=== PATIENT | female | born 1955 | race Two or more races ===

== ENCOUNTER 2020-12-15 21:04 | Emergency (ER) | payer MEDICARE, OTHER ==
[~2020-12-15] VITALS: Ht 152.4 cm; Wt 59.0 kg
--- NOTE | 2020-12-15 21:36 | NUR ---
PT BIBS C/O HIGH BP IN 190S. PT AAOX4 BREATHING EVENLY AND UNLABORED. PT ATTACHED TO MONITOR. MD AT BEDSIDE. PT DENIES DIZZINESS OR HEADACHE. GIVEN BLANKET AND CALL LIGHT WITHIN REACH
[2020-12-15 22:12] LABS: BASOPHILS % (AUTO) 0.8 % (0.0-2.0); EOSINOPHILS % (AUTO) 2.3 % (0.0-6.0); HEMATOCRIT 43 % (33-45); HEMOGLOBIN 14.1 g/dL (11.5-14.8); LYMPHOCYTES # (AUTO) 1.3 K/uL (0.8-4.8); LYMPHOCYTES % (AUTO) 31.1 % (20.0-44.0); MEAN CORPUSCULAR HGB CONC 33 g/dl (31.0-36.0); MEAN CORPUSCULAR VOLUME 82 fL (82-100); MONOCYTES # (AUTO) 0.3 K/uL (0.1-1.30); MONOCYTES % (AUTO) 6.5 % (2.0-12.0); NEUTROPHILS # (AUTO) 2.4 K/uL (1.8-8.9); NEUTROPHILS % (AUTO) 59.3 % (43.0-81.0); PLATELET COUNT (AUTO) 300 K/uL (150-450); RED BLOOD CELL COUNT(AUTO) 5.23 MIL/uL (4.0-5.2); WHITE BLOOD COUNT (AUTO) 4.1 K/uL (4.3-11.0)
[2020-12-15 22:30] LABS: CALCIUM, SERUM 8.8 mg/dL (8.5-10.1); CREATININE 0.8 mg/dL (0.6-1.3); POTASSIUM 3.5 mmol/L (3.5-5.1)
--- NOTE | 2020-12-15 22:55 | NUR ---
URINE SENT TO LAB
[2020-12-15 23:17] LABS: BILIRUBIN,URINE NEGATIVE (NEGATIVE); COLOR,URINE YELLOW (YELLOW); LEUKOCYTE ESTERASE ,URINE TRACE (NEGATIVE); NITRITE, URINE NEGATIVE (NEGATIVE); PROTEIN,URINE NEGATIVE (NEGATIVE); UGLUCOSE NEGATIVE (NEGATIVE); UROBILINOGEN,URINE 0.2 EU/dL (0.2)
[2020-12-15 23:23] LABS: BACTERIA,URINE Rare /HPF (None Seen); SQUAMOUS EPITHELIAL CELL,UR Rare /HPF (None Seen)
[2020-12-15] MEDS ORDERED: HYDR12.55 PO (23:39)
[2020-12-15] MEDS ORDERED: HYDROCHLOROTHIAZIDE 25 MG TABLET ONE (23:44)
[2020-12-15 23:54] VITALS: BP 169/83
--- NOTE | 2020-12-15 23:54 | NUR ---
Patient discharged to home in stable condition. Written and verbal after care instructions given. Patient verbalizes understanding of instruction.
[2020-12-16] MEDS ORDERED: HYDROCHLOROTHIAZIDE 25 MG TABLET PO ONE
== END 2020-12-15 23:55 | disposition home or self-care (01) ==
LOC: ER 21:05
DX: I10 Essential (primary) hypertension (principal); Z60.2 Problems related to living alone; Z79.899 Other long term (current) drug therapy
CPT/HCPCS: 36415; 80048-TC; 81001; 85025-TC